=== PATIENT | male | born 1955 | race Caucasian/White ===

== ENCOUNTER 2016-10-30 15:38 | Emergency (ER) | payer SELFPAY ==
[~2016-10-30] VITALS: Ht 177.8 cm; Wt 103.4 kg
--- NOTE | 2016-10-30 16:24 | ED GI/GU/ABDOMINAL COMPLAINT ---
History of Present Illness General Chief Complaint: Skin Rash/ Abcess Stated Complaint: ANAL ABCESS Source: patient, old records Exam Limitations: no limitations Vital Signs & Intake/Output Vital Signs & Intake/Output Vital Signs Date Time Temp Pulse Resp B/P B/P Pulse O2 O2 Flow FiO2 Mean Ox Delivery Rate 10/30 1702 240/138 10/30 1700 234/133 10/30 1549 98.0 67 18 180/120 99 Room Air Allergies Coded Allergies: No Known Allergies (10/30/16) Reconcile Medications Hydrochlorothiazide 50 MG TABLET 1 TAB PO DAILY HTN Triage Note: PT TO ED FOR "ANAL ABSCESS" PT REPORTING HE GETS THEM "APPROX 1 YEAR FOR THE PAST 10 YEARS". Triage Nurses Notes Reviewed? yes Onset: Abrupt Duration: day(s): (1), constant Timing: recent history Quality/Severity: aching, cramping Severity Numbers: 4 Location: rectal Radiation: no radiation Activities at Onset: none No Modifying Factors: none Associated Symptoms: denies HPI: 60-year-old male with no medical history presents to ER for evaluation complaining of a "thrombus" to his rectum for the past 1 day he states he's had history of similar episodes in the past requiring incision and drainage of a blood clot. He denies any fevers chills and a bowel movements morning which is normal. He states the pain is only present with palpation. Denies any discharge from black or bloody stools no abdominal pain nausea or vomiting he is not taken anything for pain on arrival patient noted be hypertensive and he states he is not taking anything for high blood pressure stop taking the 8 years ago presented to not only Made him feel. No chest pain or shortness of breath headache vision changes (MATTY PAYNE) Past History Travel History Traveled to [place] past 21 day No Medical History Any Pertinent Medical History? none Neurological: NONE EENT: NONE Cardiovascular: hypertension Respiratory: NONE Gastrointestinal: NONE Hepatic: NONE Renal: NONE Musculoskeletal: NONE Psychiatric: NONE Endocrine: NONE Blood Disorders: NONE Cancer(s): NONE Surgical History Surgical History: none Psychosocial History What is your primary language Belarusian Tobacco Use: Current Daily Use Daily Tobacco Use Amount/Type: => 5 Cigarettes daily ETOH Use: occasional use Illicit Drug Use: denies illicit drug use Family History Hx Contributory? No (MATTY PAYNE) Review of Systems Review of Systems Constitutional: Reports: see HPI. All Other Systems: Reviewed and Negative Comments Review of systems: See HPI, All other systems negative. Constitutional, no chills no fever, no malaise no weight loss HEENT: No visual changes no sore throat no congestion, no ear pain Cardiovascular: No chest pain , no palpitation , no orthopnea Skin: no rashes, no change in skin Respiratory: No dyspnea no cough no sputum no hemoptysis GI: No nausea no vomiting, no diarrhea, no bloating/constipation : No dysuria No hematuria, no frequency, no discharge Muscle skeletal: No joint pain, no joint swelling, no back pain, no neck pain, Neurologic: No numbness no confusion, no headache Psych: No stress no depression,. Heme/endocrine: No bruising no bleeding Immunology: No lymphadenopathy (MATTY PAYNE) Physical Exam Physical Exam General Appearance: well developed/nourished, alert, awake Gastrointestinal: soft Comments: Well-developed well-nourished patient in no apparent distress. HEENT: Atraumatic, extraocular motion intact Neck: Supple, FROM Back: FROM Cardiovascular: Regular rate and rhythms no murmurs rubs Respiratory: No respiratory distress. Patient speaking in full complete sentences. Breath sounds clear to auscultation bilaterally: NO W/R/R Rectal: Small hemorrhoid external noted to the left side of the rectum there is no surrounding erythema and warmth tender to palpation Extremities: full range of motion Neuro: awake, alert, and oriented to person, place and time. There were no obvious focal neurologic abnormalities. Skin: Warm & dry;No appreciable rash on exposed skin Psych: Mood affect normal, normal memory normal judgment. Core Measures ACS in differential dx? No Severe Sepsis Present: No Septic Shock Present: No (MATTY PAYNE) Progress Differential Diagnosis: hemorrhoids, PERIRECTAL ABSCESS Plan of Care: After the area was anesthetized with lidocaine 1%, small incision was made, discussed the patient that there was no blood clot present there is no signs of infection no discharge elicited, discussed the plan of care he states that normally they just placed 4 x 4 dressings and it will get better with time. Discussed with patient his elevated blood pressure he states he does check it at home and it is elevated secondary to pain. He was on medication 8 years ago however stopped taking because he did not like to wait made him feel. I discussed with him the harms and risks of elevated blood pressure he is not on a stay for adjustment in medication to see if it responds states it is only elevated because of the procedure he just underwent Initial ED EKG: none (MATTY PAYNE) Departure Departure Time of Disposition: 1651 Disposition: HOME OR SELF CARE Condition: Stable Clinical Impression Primary Impression: Hemorrhoid Secondary Impressions: HTN (hypertension) Referrals: PATIENT HAS NO PRIMARY CARE DR (PCP/Family) Additional Instructions: SITZ BATHS DISCUSSED. RETURN TO THE ER WITH ANY CONCERNS. USE THE PRESCRIBED HYDROCORTISONE CREAM DISCUSSED.. hctz as directed for your elevated blood pressure. continue to monitor at home with yourmonitor. FOLLOW UP WITH YOUR PMD WHEN YOU RETURN DISCUSSED FOR REPEAT EVALUATION WELL EVALUATION OF YOUR ELEVATED BLOOD PRESSURE Departure Forms: Customer Survey General Discharge Information Prescriptions: Current Visit Scripts Hydrochlorothiazide 1 TAB PO DAILY #30 TAB (MATTY PAYNE) PA/SWEATBAND FLANGER Co-Sign Statement Statement: ED Attending supervision documentation- [] I saw and evaluated the patient. I have also reviewed all the pertinent lab results and diagnostic results. I agree with the findings and the plan of care as documented in the PA's/SWEATBAND FLANGER's documentation. [X] I have reviewed the ED Record and agree with the PA's/SWEATBAND FLANGER's documentation. [] Additions or exceptions (if any) to the PAs/SWEATBAND FLANGER's note and plan are summarized below: [] (NEGRA SKY DO
[2016-10-30 17:02] VITALS: BP 240/138
[2016-10-30] MEDS ORDERED: HYDROCHLOROTHIA50 M1 PO (17:08)
== END 2016-10-30 17:19 ==
LOC: ERH 15:38
DX: K64.9 Unspecified hemorrhoids (principal); I10 Essential (primary) hypertension

== ENCOUNTER 2017-12-31 21:10 | Inpatient (IN) | payer OTHER ==
[~2017-12-31] VITALS: Ht 177.8 cm; Wt 125.7 kg
[~2017-12-31 21:10] MED LIST: HYDROCHLOROTHIA50 M1 PO
[2017-12-31 21:53] LABS: ABSOLUTE BASOPHIL COUNT 0 /CUMM (0.0-0.2); ABSOLUTE EOSINOPHIL COUNT 0.1 /CUMM (0.0-0.7); ABSOLUTE LYMPH COUNT 2.3 /CUMM (1.2-3.4); ABSOLUTE MONOCYTE COUNT 0.6 /CUMM (0.10-0.60); BASOPHIL % 0.3 % (0.0-2.0); EOSINOPHIL % 1.2 % (0-5); HEMATOCRIT 49.2 % (42-52); MEAN CORPUSCULAR HGB 33.3 PG (27.0-31.0); MEAN CORPUSCULAR HGB CONC 34.6 G/DL (33.0-37.0); MEAN CORPUSCULAR VOLUME 96.1 FL (80.0-94.0); MEAN PLATELET VOLUME 8.7 FL (7.4-10.4); PLATELET COUNT 220 /CUMM (130-400); RBC DISTRIBUTION WIDTH 13.4 % (11.5-14.5); RED BLOOD CELL CT 5.12 /CUMM (4.70-6.10); WHITE BLOOD CELL COUNT 9.1 /CUMM (4.8-10.8)
[2017-12-31 21:55] LABS: PT 11.5 SEC (9.4-12.5); PTT 29 SEC (25-37)
--- NOTE | 2017-12-31 22:21 | ED CARDIAC/CP/PALPITATIONS ---
History of Present Illness General Chief Complaint: General Adult Stated Complaint: "IM HAVING HARD TIME BREATHING BUT IT MY HEART" Source: patient, family Exam Limitations: no limitations Vital Signs & Intake/Output Vital Signs & Intake/Output Vital Signs Date Time Temp Pulse Resp B/P B/P Pulse O2 O2 Flow FiO2 Mean Ox Delivery Rate 01/01 0034 98.3 78 17 134/75 97 Nasal 1.5L Cannula 12/31 2250 98.7 89 16 121/63 94 Nasal 2.0L Cannula 12/31 2241 127 16 171/106 12/31 2223 134 18 142/72 12/31 2209 94 Room Air 12/31 2151 133 16 187/117 95 Room Air 12/31 2118 143/92 12/31 211 96.6 111 17 98 Room Air ED Intake and Output 01/01 0000 12/31 1200 Intake Total Output Total 300 Balance -300 Output, Urine 300 Patient 245 lb Weight Allergies Coded Allergies: No Known Allergies (10/30/16) Reconcile Medications Hydrochlorothiazide 50 MG TABLET 1 TAB PO DAILY HTN Triage Note: PT TO ED WITH C/O SOB WHILE EATING DINNER. STATES FEELS LIKE PULSE IS "IRREGULAR." TAKES MEDS FOR HTN. DENIES CP. PULSE NOTED IN LOW 100S TO 120S IN TRIAGE. Triage Nurses Notes Reviewed? yes Onset: Gradual Duration: hour(s): Quality/Severity: moderate HPI: 62yo male with hx of HTN presents to emergency department complaining of abrupt onset of dyspnea occurring 2 hours prior to arrival. Patient states that he was resting after dinner when his symptoms began. He states he had a mild substernal chest pressure at this time. Patient also became diaphoretic and felt lightheaded. Patient presented here to the emergency department and states currently his symptoms feel improved. He states that this happened once before about 4 months ago however he was not seen at that time. He states he has seen a care worker recently just for rountine cardiac testing. The patient denies hemoptysis, abdominal pain, vomiting, fevers, chills, leg swelling. (Nika CEDEÑO,Darcy Ramirez) Past History Travel History Traveled to [place] past 21 day No Medical History Any Pertinent Medical History? see below for history Neurological: NONE EENT: NONE Cardiovascular: hypertension Respiratory: NONE Gastrointestinal: NONE Hepatic: NONE Renal: NONE Musculoskeletal: NONE Psychiatric: NONE Endocrine: NONE Blood Disorders: NONE Cancer(s): NONE Surgical History Surgical History: none Psychosocial History What is your primary language Spanish Tobacco Use: Current Daily Use Daily Tobacco Use Amount/Type: => 5 Cigarettes daily Family History Hx Contributory? No (Darcy Lopez) Review of Systems Review of Systems Constitutional: Reports: see HPI. EENTM: Reports: no symptoms. Respiratory: Reports: see HPI. Cardiovascular: Reports: see HPI. GI: Reports: no symptoms. Genitourinary: Reports: no symptoms. Musculoskeletal: Reports: no symptoms. Skin: Reports: no symptoms. Neurological/Psychological: Reports: no symptoms. Hematologic/Endocrine: Reports: no symptoms. Immunologic/Allergic: Reports: no symptoms. All Other Systems: Reviewed and Negative (Darcy Lopez) Physical Exam Physical Exam General Appearance: well developed/nourished, no apparent distress, alert, awake Head: atraumatic, normal appearance Eyes: Bilateral: normal appearance. Ears, Nose, Throat: hearing grossly normal Neck: normal inspection, supple, full range of motion Respiratory: normal breath sounds, no respiratory distress, lungs clear Cardiovascular: tachycardia, irregularly irregular Peripheral Pulses: 2+ radial (R), 2+ radial (L) Gastrointestinal: normal bowel sounds, soft, non-tender, no organomegaly Back: normal inspection, normal range of motion Extremities: normal inspection Neurologic/Psych: awake, alert, oriented x 3 Skin: intact, normal color, warm/dry Core Measures ACS in differential dx? Yes CVA/TIA Diagnosis No Sepsis Present: No Sepsis Focused Exam Completed? No (Darcy Lopez) Progress Differential Diagnosis: AMI, atrial fibrillation, CHF/pulm edema, costochondritis, hyperkalemia, hyperthyroid, myocarditis, pericarditis, pneumonia, PSVT, pulmonary embolism, unstable angina, V-fib/V-Tach Plan of Care: Orders Procedure Date/time Status Regular Diet 01/01 B Active Pathway - chart 01/02 12 Active Patient Data 01/02 12 Active Code Status 01/02 12 Active Pathway - chart 01/01 UNK Active House Staff 01/01 UNK Active VTE Mechanical Prophylaxis 01/01 UNK Active Vital Signs 01/01 UNK Active Telemetry/Cloth Classer 01/01 UNK Active Intake & Output 01/01 UNK Active Activity/Ambulation 01/01 UNK Active OXYGEN SETUP (GEN) 01/01 2332 Active Saline Lock 01/01 2332 Active Admit to inpatient 01/01 2332 Active Vital Signs 01/01 2332 Active Activity/Ambulation 01/01 2332 Active Code Status 01/01 2332 Complete Patient Data 12/31 232 Active Add-on Test (ER Only) 12/31 225 Active Add-on Test (ER Only) 12/31 222 Active THYROID STIMULATING HORMONE 12/31 2212 Complete MAGNESIUM 12/31 2212 Complete FREE T4 12/31 2212 Complete B-TYPE NATRIURETIC PEP (BNP) 12/31 2212 Complete Intake & Output 01/01 2208 Active PARTIAL THROMBOPLASTIN TIME 12/31 2136 Complete PROTHROMBIN TIME 12/31 2136 Complete D-DIMER 01/01 2132 Complete TROPONIN LEVEL 12/31 2126 Complete COMPREHENSIVE METABOLIC PANEL 12/31 2126 Complete CBC WITHOUT DIFFERENTIAL 12/31 2126 Complete EKG 12/31 2117 Active Current Medications Sig/Vitaly Start time Last Medication Dose Stop Time Status Admin Diltiazem HCl 125 MG Q24H 12/31 2299 AC 12/31 (Cardizem DRIP) 2320 Sodium Chloride 100 ML (Normal Saline 0.9%) Laboratory Tests 12/31/172212: Anion Gap 16, Estimated GFR > 60, BUN/Creatinine Ratio 23.6, Glucose 160 H, Calcium 10.1, Magnesium 2.2, Total Bilirubin 0.3, AST 63 H, ALT 120 H, Alkaline Phosphatase 64, Troponin I < 0.01, Kql-J-Pqtpnpkqolw Pept 87.9, Total Protein 7.4, Albumin 4.8, Globulin 2.6, Albumin/Globulin Ratio 1.8, TSH 2.950, Free T4 1.21 12/31/172136: Rgy-J-Yitlaspscwi Pept Cancelled 12/31/172131: PT 11.5, INR 1.05, APTT 29, D-Dimer High Sensitivty < 200, CBC w Diff NO MAN DIFF REQ, RBC 5.12, MCV 96.1 H, MCH 33.3 H, MCHC 34.6, RDW 13.4, MPV 8.7, Gran % 66.0, Lymphocytes % 25.7, Monocytes % 6.8, Eosinophils % 1.2, Basophils % 0.3, Absolute Granulocytes 6.0, Absolute Lymphocytes 2.3, Absolute Monocytes 0.6, Absolute Eosinophils 0.1, Absolute Basophils 0 The patient arrives with heart rate in the 140s. He was medicated with 1 dose IV Cardizem 10 mg. Following this initial dose heart rate between 120s to 130s. Second dose of 20 mg administered and heart rate more controlled, between 85 and 100. Awaiting cardiology page. Patient's oxygen level dropped to 92% on room air, supplemental oxygen via nasal cannula applied. Spoke with Dr. Shelton regarding this patient's rapid atrial fibrillation. He agrees with our plan for hospital admission, he recommends IV Cardizem drip, WILL hold heparinization at this time. Dr. Lantigua spoke with hospitalist regarding this patient's telemetry admission. Diagnostic Imaging: Viewed by Me: Radiology Read. Discussed w/RAD: Radiology Read. CXR Impression: PATIENT: NENO GARCIA PRESENT AGE: 62 PATIENT ACCOUNT NO: [id number] : 57 LOCATION: [facility] ORDERING PHYSICIAN: Darcy CEDEÑO SERVICE DATE: 12/31/17 EXAM TYPE: RAD - XRY-PORTABLE CHEST XRAY EXAMINATION: XR PORTABLE CHEST CLINICAL INFORMATION: Dyspnea COMPARISON: 10/02/2017 TECHNIQUE: Portable frontal view of the chest was obtained. FINDINGS: No significant abnormality is noted involving the heart, lungs, mediastinum, bony thorax or soft tissues. IMPRESSION: Unremarkable examination. DICTATED BY: Jensen Kent MD DATE/TIME DICTATED:12/31/172247 BRANCH ADMINISTRATOR:PORSHA DATE/TIME TRANSCRIBED:12/31/172247 CONFIDENTIAL, DO NOT COPY WITHOUT APPROPRIATE AUTHORIZATION. <Electronically signed in Other Vendor System> SIGNED BY: Jensen Kent MD 12/31/17 7575 Initial ED EKG: RAPID A FIB RATE 144 (Nika CEDEÑO,Darcy Ramirez) Departure Departure Disposition: STILL A PATIENT Condition: Stable Clinical Impression Primary Impression: Rapid atrial fibrillation Referrals: Lei Enciso MD (PCP/Family) Departure Forms: Customer Survey General Discharge Information Admission Note Spoke With: Shay Moseley MD Documentation of Exam: Documentation of any treatments & extenuating circumstances including Concerns Regarding Discharge (functional status, medication knowledge or non-compliance, living conditions, etc.) that warrant an admission rather than observation: [ Rapid atrial fibrillation requiring IV Cardizem ip, cardiology consult, telemetry monitoring, supplemental oxygen, premature discharge medically unsafe] (Darcy Lopez) PA/SCREEDMAN Co-Sign Statement Statement: ED Attending supervision documentation- x I saw and evaluated the patient. I have also reviewed all the pertinent lab results and diagnostic results. I agree with the findings and the plan of care as documented in the PA's/SCREEDMAN's documentation. SOB, palpitations: new onset rapid afib [] I have reviewed the ED Record and agree with the PA's/SCREEDMAN's documentation. [] Additions or exceptions (if any) to the PAs/SCREEDMAN's note and plan are summarized below: [] (Grzegorz CUEVAS,Aiden) Critical Care Note Critical Care Note Critical Care Time: 30-74 min (Darcy Lopez)
--- NOTE | 2017-12-31 22:53 | RADIOLOGY REPORT ---
EXAMINATION: XR PORTABLE CHEST CLINICAL INFORMATION: Dyspnea COMPARISON: 10/02/2017 TECHNIQUE: Portable frontal view of the chest was obtained. FINDINGS: No significant abnormality is noted involving the heart, lungs, mediastinum, bony thorax or soft tissues. IMPRESSION: Unremarkable examination.
--- NOTE | 2018-01-01 00:02 | History & Physical ---
GeraldinejohnathanJose F 01/01/18 0001: General Information and HPI MD Statement: I have seen and personally examined NENO GARCIA and documented this H&P. Source of Information: patient Exam Limitations: no limitations History of Present Illness: Patient is a 62 yo M with PMH of HTN who presented to [place] ER due to difficulty breathing. He has had a fairly benign medical history until 9 months ago when his primary care physician diagnosed him with hypertension. He was prescribed what patient seems to recollect as "a water pill" and possibly an PHOEBE ihibitor but he is unsure. He used the medications for a few weeks until he noticed bilateral edema in his legs and developed a harsh dry cough. The second medication was changed to Losartan. The water pill was kept in the reigmen. He was given a referral to Dr. Glover (ground crewman mission support) and follows with him. Patient stopped taking his medication because it seems he never returned for a refill. He has an extensive smoking history of at least 1/2 a ppd for 25 years. According to the patient he was at home resting right after having his evening meal when he became diaphoretic, hot, and started experiencing palpitations. He felt lightheaded and found it difficult to breath while also experiencing some chest discomfort, which was the reason he decided to come to the ER. He endorses that he only had one similar event to this in the past about 4-6 months ago however he never saw any health client care coordinator at the time. Upon admission to the ED his HR is found to be in the 140s. After initial EKG, patient is found to be in AFib with RVR. He was given two doses IV cardizem, first 10mg then 20mg and was more rate controlled down to the 100s. His O2 saturation was found to be 92% on room air. He denies changes in vision, nausea, vomiting, chills at this time. Allergies/Medications Allergies: Coded Allergies: No Known Allergies (10/30/16) Home Med list Aspirin (Aspirin*) 325 MG TABLET 1 TAB PO DAILY afib Hydrochlorothiazide 50 MG TABLET 1 TAB PO DAILY HTN Losartan Potassium 25 MG TABLET 1.5 TAB PO DAILY htn (Reported) Metoprolol Succ XL (Toprol XL) 25 MG TAB 1 TAB PO DAILY afib/htn . Past History Travel History Traveled to [place] past 21 day No Medical History Neurological: NONE EENT: NONE Cardiovascular: hypertension Respiratory: NONE Gastrointestinal: NONE Hepatic: NONE Renal: NONE Musculoskeletal: NONE Psychiatric: NONE Endocrine: NONE Blood Disorders: NONE Cancer(s): NONE Surgical History Surgical History: none Review of Systems Review of Systems Constitutional: Reports: see HPI. Exam & Diagnostic Data Last 24 Hrs of Vital Signs/I&O Vital Signs Date Time Temp Pulse Resp B/P B/P Pulse O2 O2 Flow FiO2 Mean Ox Delivery Rate 01/01 0451 98.2 66 22 128/76 93 Room Air 01/01 0143 77 144/84 01/01 0119 98.3 84 20 144/84 94 Room Air 01/01 0034 98.3 78 17 134/75 97 Nasal 1.5L Cannula 12/31 2250 98.7 89 16 121/63 94 Nasal 2.0L Cannula 12/31 2241 127 16 171/106 12/31 2223 134 18 142/72 12/31 2209 94 Room Air 12/31 2151 133 16 187/117 95 Room Air 12/31 2118 143/92 12/31 2116 96.6 111 17 98 Room Air Intake & Output 01/01 0800 01/01 0000 12/31 1600 Intake Total Output Total 575 300 Balance -575 -300 Output, Urine 575 300 Patient 277 lb 245 lb Weight Weight Bed scale Measurement Method Physical Exam General Appearance Alert, Oriented X3, Cooperative, No Acute Distress Skin Temp/Moisture Exam: Warm/Dry HEENT Atraumatic, EOMI Neck Supple, No JVD Cardiovascular Regular Rate, Normal S1, Normal S2 Lungs Clear to Auscultation, Normal Air Movement Abdomen Normal Bowel Sounds, Soft, No Tenderness Extremities No Cyanosis, Normal Pulses, No Tenderness/Swelling Last 24 Hrs of Labs/Logan: Laboratory Tests 01/01/18 0415: Anion Gap 9, Estimated GFR > 60, BUN/Creatinine Ratio 24.4, Troponin I 0.12 *H, CBC w Diff NO MAN DIFF REQ, RBC 4.86, MCV 95.7 H, MCH 33.0 H, MCHC 34.5, RDW 13.8, MPV 8.4, Gran % 60.3, Lymphocytes % 31.5, Monocytes % 6.8, Eosinophils % 1.0, Basophils % 0.4, Absolute Granulocytes 5.1, Absolute Lymphocytes 2.7, Absolute Monocytes 0.6, Absolute Eosinophils 0.1, Absolute Basophils 0 12/31/172212: Anion Gap 16, Estimated GFR > 60, BUN/Creatinine Ratio 23.6, Glucose 160 H, Calcium 10.1, Magnesium 2.2, Total Bilirubin 0.3, AST 63 H, ALT 120 H, Alkaline Phosphatase 64, Troponin I < 0.01, Pty-V-Fryljhpgmsh Pept 87.9, Total Protein 7.4, Albumin 4.8, Globulin 2.6, Albumin/Globulin Ratio 1.8, TSH 2.950, Free T4 1.21 12/31/172136: Kfc-Z-Xftpbizopfv Pept Cancelled 12/31/172131: PT 11.5, INR 1.05, APTT 29, D-Dimer High Sensitivty < 200, CBC w Diff NO MAN DIFF REQ, RBC 5.12, MCV 96.1 H, MCH 33.3 H, MCHC 34.6, RDW 13.4, MPV 8.7, Gran % 66.0, Lymphocytes % 25.7, Monocytes % 6.8, Eosinophils % 1.2, Basophils % 0.3, Absolute Granulocytes 6.0, Absolute Lymphocytes 2.3, Absolute Monocytes 0.6, Absolute Eosinophils 0.1, Absolute Basophils 0 Assessment/Plan Assessment: 62 yo M with PMH of HTN who presented to [place] ER due to difficulty breathing. In ER found to be afib with RVR. Started Cardizem Drip. Spontaneously Converted to NSR after rate control. 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 Rapid atrial fibrillation Core Measures/Misc (01/12) Acute Coronary Syndrome ACS Diagnosis: No Congestive Heart Failure Congestive Heart Failure Diagnosis No Cerebrovascular Accident CVA/TIA Diagnosis: No VTE (View Protocol) VTE Risk Factors Age>40 No Mechanical VTE Prophylaxis d/t N/A MechProphylax Ordered No VTE Pharm Prophylaxis d/t NA PharmProphylax ordered Sepsis (View protocol) Sepsis Present: No If YES complete Sepsis Event Note If YES complete Sepsis Event Note Catrachito Yeung 01/01/18 0009: Core Measures/Misc (01/12) Sepsis (View protocol) If YES complete Sepsis Event Note If YES complete Sepsis Event Note Resident Review Statement Resident Statement: examined this patient, discussed with advisory intern, agreed with advisory intern Other Findings: This is a 62-year-old male, current active smoker, past medical history of hypertension came in with chief complaint of having hard time breathing and endorses that this is all due to his heart. Apparently 8-9 months ago, he was following up with his PCP when he was found to have high blood pressure which was not controlled by diet this is when he was initially started on a diuretic namely hydrochlorothiazide and then another medication for high blood pressure however he experienced symptoms of cough and lower extremity edema and therefore ultimately the medication was changed to losartan. After this he was referred to cardiology and he had a recent echocardiogram 2 months prior to today's presentation which according to him was normal. He seem to have seen Dr. Glover as outpatient. Today prior to presentation he was resting after having his dinner this is when he suddenly became sweaty, could not catch any breath, felt lightheaded and dizzy, became diaphoretic and experienced some mild substernal chest pressure, this is why he presented to [place] emergency department. He endorses a history of similar episode 4 months ago however he did not seek hospital care at that time. He states that he has seen a ground crewman mission support(?Dr glover) recently and had routine cardiac testing which was WNL. His vitals on presentation are temperature of 98.7, pulse of 133, respiration of 16, blood pressure of 187 117, he was saturating 95% on room air. lab armando he had a white count of 9.1, H/H of 17.0/49.2, platelet of 220. Sodium of 137, potassium of 3.1, BUN/creatinine 26/1.1, glucose of 160. AST mildly elevated at 63 and ALT at 120. Troponin I was negative less than 0.01. TSH and free T4 was normal. CXR : no acute abnormality We will admit the patient to cardiac telemetry floor for continuous cardiac monitoring. Problem list along with assessment and plan. #1 atrial fibrillation with rapid ventricular rate. * Continue to monitor patient on cardiac telemetry floor, continue to monitor intake and output, continue to monitor vitals every shift * patient was started on IV Cardizem, currently heart rate well controlled, will discontinue Cardizem and start p.o. metoprolol 12.5 twice daily. * His chads vascular score is equivalent to 1, which falls an intermediate risk of thromboembolic event. He denies any history of diabetes, stroke or TIA, however he does have a history of hypertension. * We will continue rate control with metoprolol for now * cardiology consult with Dr. Glover in a.m. As per him he thinks that he saw Dr. Glover is his ground crewman mission support however it is not completely sure. * He had a recent echocardiogram as outpatient, please obtain records for recent echocardiogram. * Continue to trend EKG and troponin serial EKG and troponin. #2 history of hypertension. * Continue home medication of hydrochlorothiazide and losartan. * Continue to monitor blood pressure. #3 current active smoker. * We will offer nicotine patch. * Smoking cessation. Full code. Heart healthy diet. DVT prophylaxis with Lovenox. Shay Moseley 01/01/18 0129: Core Measures/Misc (01/12) Sepsis (View protocol) If YES complete Sepsis Event Note If YES complete Sepsis Event Note Attending MD Review Statement Attending Statement Attending MD Statement: examined this patient, discuss w/resident/PA/SENIOR NET APPLICATION DEVELOPER, agreed w/resident/PA/SENIOR NET APPLICATION DEVELOPER Attending Assessment/Plan: Addendum by . Patient was seen and examined at bedside today ( 01/01/18) at 1:30Am.. Reviewed the history physical done by the resident. Reviewed the past medical family, family, social history. ROS: 10 point system reviewed and negative except as described above. Exam: Cardiac exam: Regular rhythm normal rate, no murmurs. See the full examination per resident note. Labs, EKG, daily, imaging are reviewed. a/P; #atrial fibrillation with rapid rate: Currently patient is sinus rhythm, converted spontaneously. Patient got Cardizem drip. Will stop the Cardizem drip, start metoprolol 12.5 mg twice daily. CHAdsVasc score is 1, hold off on blood thinner. Patient has echocardiogram 2 months ago at his cardiology office. Get the report. consult cardiology in the morning. Monitoring on tele. Keep n.p.o. until seen by cardiology. #Hypertension: Patient is on hydrochlorothiazide, losartan at home- can resume the medications. #Smoking: smoking cessation is counseled . Reviewed with the resident. Agree with the rest of the plan as per resident's note. Dr.Ravinder Kirti MD. Hospitalist. Pager: [phone], cell: [phone].
[2018-01-01 01:19] VITALS: BP 144/84
[2018-01-01] MEDS ORDERED: LOSARTAN POTASS25 M1 PO (01:35)
[2018-01-01 04:37] LABS: ABSOLUTE BASOPHIL COUNT 0 /CUMM (0.0-0.2); ABSOLUTE EOSINOPHIL COUNT 0.1 /CUMM (0.0-0.7); ABSOLUTE GRANULOCYTE CT 5.1 /CUMM (1.4-6.5); ABSOLUTE LYMPH COUNT 2.7 /CUMM (1.2-3.4); ABSOLUTE MONOCYTE COUNT 0.6 /CUMM (0.10-0.60); BASOPHIL % 0.4 % (0.0-2.0); GRANULOCYTE % 60.3 % (42.2-75.2); HEMATOCRIT 46.5 % (42-52); MEAN CORPUSCULAR HGB CONC 34.5 G/DL (33.0-37.0); MEAN CORPUSCULAR VOLUME 95.7 FL (80.0-94.0); MEAN PLATELET VOLUME 8.4 FL (7.4-10.4); PLATELET COUNT 211 /CUMM (130-400); RBC DISTRIBUTION WIDTH 13.8 % (11.5-14.5); RED BLOOD CELL CT 4.86 /CUMM (4.70-6.10); WHITE BLOOD CELL COUNT 8.5 /CUMM (4.8-10.8)
[2018-01-01 04:51] VITALS: BP 128/76
--- NOTE | 2018-01-01 07:14 | PN- Housestaff ---
Holly CUEVAS,Alo 01/01/18712: Subjective Follow-up For: afib with rvr hypokalemia Tele-Events Since Last Visit: converted to sinus rhythm Subjective: patient has no complaints, no chest pain, dyspnea, palpitations, diaphoresis anxious to be discharged Review of Systems Constitutional: Reports: see HPI. Objective Last 24 Hrs of Vital Signs/I&O Vital Signs Date Time Temp Pulse Resp B/P B/P Pulse O2 O2 Flow FiO2 Mean Ox Delivery Rate 01/01 0807 66 136/78 01/01 0806 66 136/78 01/01 0800 Room Air 01/01 0451 98.2 66 22 128/76 93 Room Air 01/01 0143 77 144/84 01/01 0119 98.3 84 20 144/84 94 Room Air 01/01 0034 98.3 78 17 134/75 97 Nasal 1.5L Cannula 12/31 2250 98.7 89 16 121/63 94 Nasal 2.0L Cannula 12/31 2241 127 16 171/106 12/31 2223 134 18 142/72 12/31 2209 94 Room Air 12/31 2151 133 16 187/117 95 Room Air 12/31 2118 143/92 12/31 2116 96.6 111 17 98 Room Air Intake & Output 01/01 1600 01/01 0800 01/01 0000 Intake Total 155 Output Total 575 300 Balance -420 -300 Intake, IV 5 Intake, Oral 150 Number 0 Bowel Movements Output, Urine 575 300 Patient 125.73 kg 111.13 kg Weight Weight Bed scale Measurement Method Physical Exam General Appearance: Alert, Oriented X3, Cooperative, No Acute Distress, obese Cardiovascular: Regular Rate, Normal S1, Normal S2, No Murmurs Lungs: Clear to Auscultation, Normal Air Movement Abdomen: Normal Bowel Sounds, Soft, No Tenderness, No Masses Extremities: No Clubbing, No Cyanosis, No Edema, Normal Pulses Current Medications: Current Medications Sig/Vitaly Start time Last Medication Dose Route Stop Time Status Admin Acetaminophen 650 MG Q6P PRN 01/01 014 AC PO Acetaminophen 1,000 MG Q6P PRN 01/01 014 AC IV Diltiazem HCl 0 .STK-MED ONE 12/313 DC IV Diltiazem HCl 0 .STK-MED ONE 12/31 2306 DC IV Diltiazem HCl 125 MG Q24H 12/31 2299 NH 12/31 Sodium Chloride 100 ML IV 232 Diltiazem HCl 20 MG ONCE ONE 12/31 2244 DC 12/31 IV 12/31 Diltiazem HCl 0 .STK-MED ONE 01/01 2240 DC .ROUTE Diltiazem HCl 0 .STK-MED ONE 12/31 2221 DC .ROUTE Diltiazem HCl 10 MG ONCE ONE 12/31 2214 DC 12/31 IV 12/31 Hydrochlorothiazide 50 MG DAILY 01/01 900 AC 01/01 PO 08 Losartan Potassium 37.5 MG DAILY 01/01 900 AC 01/01 PO 0807 Metoprolol Tartrate 12.5 MG BID 01/01 014 AC 01/01 PO 08 Nicotine 14 MG DAILY 01/01 900 AC TOP Oxycodone/ 1 TAB Q6P PRN 01/01 014 AC Acetaminophen PO Potassium Chloride 20 MEQ ONCE ONE 01/01 1200 UNVr PO 01/01 1201 Potassium Chloride 0 .STK-MED ONE 12/31 2326 DC PO Potassium Chloride 40 MEQ ONCE ONE 12/31 231 DC 12/31 PO 01/01 2316 232 Last 24 Hrs of Lab/Logan Results Last 24 Hrs of Labs/Mics: Laboratory Tests 01/01/18 1030: Troponin I 0.08 01/01/18 0415: Anion Gap 9, Estimated GFR > 60, BUN/Creatinine Ratio 24.4, Troponin I 0.12 *H, CBC w Diff NO MAN DIFF REQ, RBC 4.86, MCV 95.7 H, MCH 33.0 H, MCHC 34.5, RDW 13.8, MPV 8.4, Gran % 60.3, Lymphocytes % 31.5, Monocytes % 6.8, Eosinophils % 1.0, Basophils % 0.4, Absolute Granulocytes 5.1, Absolute Lymphocytes 2.7, Absolute Monocytes 0.6, Absolute Eosinophils 0.1, Absolute Basophils 0 12/31/172212: Anion Gap 16, Estimated GFR > 60, BUN/Creatinine Ratio 23.6, Glucose 160 H, Calcium 10.1, Magnesium 2.2, Total Bilirubin 0.3, AST 63 H, ALT 120 H, Alkaline Phosphatase 64, Troponin I < 0.01, Xyy-X-Jtkfonumdtl Pept 87.9, Total Protein 7.4, Albumin 4.8, Globulin 2.6, Albumin/Globulin Ratio 1.8, TSH 2.950, Free T4 1.21 12/31/172136: Jkj-W-Srmlkqajdad Pept Cancelled 12/31/172131: PT 11.5, INR 1.05, APTT 29, D-Dimer High Sensitivty < 200, CBC w Diff NO MAN DIFF REQ, RBC 5.12, MCV 96.1 H, MCH 33.3 H, MCHC 34.6, RDW 13.4, MPV 8.7, Gran % 66.0, Lymphocytes % 25.7, Monocytes % 6.8, Eosinophils % 1.2, Basophils % 0.3, Absolute Granulocytes 6.0, Absolute Lymphocytes 2.3, Absolute Monocytes 0.6, Absolute Eosinophils 0.1, Absolute Basophils 0 Assessment/Plan Assessment: 62 year old male obese HTN smoker presented with complaints of dyspnea and was found to be in atrial fibrillation with rapid ventricular response, now converted to normal sinus rhythm after receiving diltiazem. Atrial fibrillation with rapid ventricular response Converted to sinus rhythm after IV diltiazem Metoprolol started 12.5mg po bid TSH was normal CHADsvasc score of 1, start aspirin Cardiology consulted, follow up recommendations Echocardiogram 09/2017 Normal left ventricular size, wall thickness and systolic function with no obvious regional wall motion abnormalities. The ejection fraction is visually estimated at 60 %. Grade 1 diastolic dysfunction. There is trace tricuspid regurgitation. Pulmonary artery systolic pressure is normal. Hypokalemia: 3.1 on presentation Repleted with oral potassium Elevated troponins: Demand ischemia in the setting of tachyarrhythmia but possible Type II NSTEMI, with subsequent decrease after conversion to normal sinus rhythm Patient has risk factors for CAD with obesity, smoking, and HTN Consider outpatient stress test HTN: Continue losartan and HCTZ, in addition to metoprolol 12.5mg po bid Smoking: Continue nicotine patch Mild transaminitis: AST 63, ALT 120 Repeat LFTs as an outpatient Heart healthy diet DVT ppx-lovenox sc Full code Problem List: 1. Rapid atrial fibrillation 2. HTN (hypertension) 3. Obesity 4. Hypokalemia Pain Ratin Pain Location: n/a Pain Goal: Pain 4 or less Pain Plan: prn Tomorrow's Labs & Rationales: none Margi Soto MD 01/01/18 1038: Attending MD Review Statement Attending Statement Attending MD Statement: examined this patient, discuss w/resident/PA/MEDICAL OFFICE RECEPTIONIST ASSISTANT, agreed w/resident/PA/MEDICAL OFFICE RECEPTIONIST ASSISTANT, reviewed EMR data (avail) Attending Assessment/Plan: 62M PMH HTN presenting with palpitations in the setting of rapid atrial fibrillation. Had an episode of afib 6 months ago that self-resolved. In the ER he was given IV Cardizem and he converted to NSR, where he remains. He has no complaints at this time, and denies chest pain, palpitations, SOB, lightheadedness, diaphoresis, n/v, abdominal pain. He has never had a stress test or cardiac cath. His troponin is slightly elevated at 0.12. 1. New onset atrial fibrillation 2. Type 2 myocardial infarction Plan - Continue on telemetry - Continue Metoprolol - CHADS-VASC = 1, continue ASA - Cardiology consult - Trend enzymes to peak - Continue home medications - DVT PPx
[2018-01-01 08:07] VITALS: BP 136/78
[2018-01-01] MEDS ORDERED: TOPROL XL25 M1 PO ×2 (12:23→12:25)
[2018-01-01] MEDS ORDERED: ASPIRIN325 M2 PO (12:23)
--- NOTE | 2018-01-01 12:27 | Patient Discharge Instructions ---
Discharge Instructions General Discharge Information You were seen/treated for: afib elevated troponins Special Instructions: Follow up with your primary care physician and z os mainframe systems programmer, Dr. Shelton. Diet Recommended Diet: Heart Healthy Acute Coronary Syndrome Inclusion Criteria At DC or during hospital stay patient has or had the following: ACS DIAGNOSIS No Discharge Core Measures Meds if any: Prescribed or Continued at Discharge Meds if any: NOT Prescribed or Continued at Discharge Congestive Heart Failure Inclusion Criteria At DC or during hospital stay patient has or had the following: CHF DIAGNOSIS No Discharge Core Measures Meds if any: Prescribed or Continued at Discharge Meds if any: NOT Prescribed or Continued at Discharge Cerebrovascular accident Inclusion Criteria At DC or during hospital stay patient has or had the following: CVA/TIA Diagnosis No Discharge Core Measures Meds if any: Prescribed or Continued at Discharge Meds if any: NOT Prescribed or Continued at Discharge Venous thromboembolism Inclusion Criteria VTE Diagnosis No VTE Type NONE VTE Confirmed by (Test) NONE Discharge Core Measures - Per Current guidelines, there needs to be overlap - treatment for the first 5 days of Warfarin therapy. - If discharged on Warfarin prior to 5 days of - overlap therapy, the patient will need to be - assessed for post discharge needs including - *Post discharge parental anticoagulation - *Warfarin and/or parental anticoagulation education - *Follow up date to check INR post discharge At least 5 days overlap therapy as Inpatient No Meds if any: Prescribed or Continued at Discharge Note: Overlap Therapy is Warfarin and Anticoagulant Meds if any: NOT Prescribed or Continued at Discharge
--- NOTE | 2018-01-01 12:27 | Discharge Summary ---
Visit Information Visit Dates Admission Date: 12/31/17 Discharge Date: 01/01/18 Hospital Course Course Attending Physician: Shay Moseley MD Primary Care Physician: Lei Enciso MD Hospital Course: 62 year old male smoker with obesity and HTN presented with acute onset dyspnea, diaphoresis, palpitions, and chest heaviness found to be in atrial fibrillation with rapid ventricular response. He was admitted to telemetry and spontaneously converted to normal sinus rhythm after receiving intravenous diltiazem. Cardiology was consulted. He was started on aspirin, given his CHADSvasc score of 1. His thyroid function was normal. Other labs were notable for mild transaminitis, AST 63 ALT 120, that can be repeated as an outpatient; hypokalemia that was repleted orally; and minimally elevated troponin to 0.12, that then trended down after conversion to sinus rhythm. This was likely demand ischemia in the setting of tachyarrhythmia. He will need ambulatory Holter monitoring after discharge. He has risk factors for CAD with obesity, smoking, and HTN and may need outpatient stress testing for CAD risk stratification. He was started on metoprolol 12.5mg po bid with heart rates in the 60s-70s and blood pressure 130s systolic. He had a recent echocardiogram in 09/2017 that showed normal left ventricular size, wall thickness and systolic function, grade 1 diastolic dysfunction, and trace TR, so this was not repeated during admission. He was discharged on aspirin and metoprolol XL 25mg po daily and instructed to follow up with his primary care physician and credit counselor. Allergies: Coded Allergies: No Known Allergies (10/30/16) Disposition Summary Disposition Principal Diagnosis: Atrial fibrillation with rapid ventricular response Hypokalemia Elevated troponins secondary to demand ischemia in the setting of tachyarrhythmia Additional Diagnosis: Hypertension Smoking Obesity Discharge Disposition: home or self care Discharge Instructions General Discharge Information Code Status: Full Code Patient's Diet: Heart healthy diet Patient's Activity: As tolerated Follow-Up Instructions/Appts: Please follow up with your primary care physician and credit counselor, Dr. Shelton, after discharge. Medications at Discharge Discharge Medications: Continue taking these medications: Hydrochlorothiazide (Hydrochlorothiazide) 50 MG TABLET 1 Tablet ORAL DAILY Qty = 30 Comments: Last Taken: 01/01/18 Time: 08:00 AM Losartan Potassium (Losartan Potassium) 25 MG TABLET 1.5 Tablet ORAL DAILY Comments: Last Taken: 01/01/18 Time: 8:00 AM Start taking the following new medications: Metoprolol Succ XL (Toprol XL) 25 MG TAB 1 Tablet ORAL DAILY Qty = 30 No Refills Instructions: . Comments: Last Taken: 01/01/18 Time: 8:00 AM Aspirin (Aspirin*) 325 MG TABLET 1 Tablet ORAL DAILY Qty = 30 No Refills Comments: Last Taken: 01/01/18 Time: 1:00 PM Copies To: Lei Enciso MD; Luz Elena Shelton MD, MD Review Statement Documenting Attending: Margi Soto MD Qty = 30 No Refills Instructions: . Comments: Last Taken: 01/01/18 Time: 8:00 AM Aspirin (Aspirin*) 325 MG TABLET 1 Tablet ORAL DAILY Qty = 30 No Refills Comments: Last Taken: 01/01/18 Time: 1:00 PM Copies To: Lei Enciso MD; Luz Elena Shelton MD, MD Review Statement Documenting Attending: Margi Soto MD
--- NOTE | 2018-01-01 13:54 | Cons- Cardiology ---
General Information and HPI Consulting Request Date of Consult: 01/01/18 Requested By: Shay Moseley MD Reason for Consult: Paroxysmal atrial fibrillation Source of Information: patient Exam Limitations: no limitations History of Present Illness: Patient is a 62-year-old male who is known to me from office visit. The patient is admitted via the emergency room with symptoms of warmth, dyspnea, fatigue, and palpitations, noted to be in atrial fibrillation with a rapid ventricular rate. Treated with IV Cardizem in the emergency room and ultimately admitted to [address] [place] [address]. By the time the patient arrived on the telemetry monitored floor he had reverted to sinus rhythm. Has remained in sinus rhythm overnight and has been stable since that time. His troponin was minimally elevated at 0.12. Follow-up troponin is pending. Allergies/Medications Allergies: Coded Allergies: No Known Allergies (10/30/16) Home Med List: Aspirin (Aspirin*) 325 MG TABLET 1 TAB PO DAILY afib Hydrochlorothiazide 50 MG TABLET 1 TAB PO DAILY HTN Losartan Potassium 25 MG TABLET 1.5 TAB PO DAILY htn (Reported) Metoprolol Succ XL (Toprol XL) 25 MG TAB 1 TAB PO DAILY afib/htn . Current Medications: Current Medications Sig/Vitaly Start time Last Medication Dose Route Stop Time Status Admin Acetaminophen 650 MG Q6P PRN 01/01 0145 DCD PO Acetaminophen 1,000 MG Q6P PRN 01/01 0145 DCD IV Aspirin 0 .STK-MED ONE 01/01 1255 DC PO Aspirin 325 MG DAILY 01/01 1230 DCD 01/01 PO 1256 Diltiazem HCl 0 .STK-MED ONE 12/31 2313 DC IV Diltiazem HCl 0 .STK-MED ONE 12/31 2307 DC IV Diltiazem HCl 125 MG Q24H 12/31 2300 DC 12/31 Sodium Chloride 100 ML IV 2321 Diltiazem HCl 20 MG ONCE ONE 12/31 2244 DC 12/31 IV 12/31 Diltiazem HCl 0 .STK-MED ONE 12/31 224 DC .ROUTE Diltiazem HCl 0 .STK-MED ONE 12/312 DC .ROUTE Diltiazem HCl 10 MG ONCE ONE 12/315 DC 12/31 IV 12/31 Enoxaparin Sodium 40 MG DAILY 01/02 900 DCD SC Hydrochlorothiazide 50 MG DAILY 01/01 900 DCD 01/01 PO 08 Losartan Potassium 37.5 MG DAILY 01/01 900 DCD 01/01 PO 08 Metoprolol Tartrate 12.5 MG BID 01/01 145 DCD 01/01 PO 08 Nicotine 14 MG DAILY 01/01 900 DCD TOP Oxycodone/ 1 TAB Q6P PRN 01/01 145 DCD Acetaminophen PO Potassium Chloride 20 MEQ ONCE ONE 01/01 1200 DC 01/01 PO 01/01 1201 1256 Potassium Chloride 0 .STK-MED ONE 12/31 2326 DC PO Potassium Chloride 40 MEQ ONCE ONE 12/31 2314 DC 12/31 PO 12/31 Past History Travel History Traveled to [place] past 21 day No Medical History Blood Transfusion Hx: No Neurological: NONE EENT: NONE Cardiovascular: hypertension Respiratory: NONE Gastrointestinal: NONE Hepatic: NONE Renal: NONE Musculoskeletal: NONE Psychiatric: NONE Endocrine: NONE Blood Disorders: NONE Cancer(s): NONE WILDLIFE TECHNICIAN/Reproductive: NONE Surgical History Surgical History: 1 Psychosocial History Where Do You Live? Home Services at Home: None Smoking Status: Current Everyday Smoker Exam & Diagnostic Data Vital Signs and I&O Vital Signs Date Time Temp Pulse Resp B/P B/P Pulse O2 O2 Flow FiO2 Mean Ox Delivery Rate 01/01 08 66 136/78 01/01 08 66 136/78 01/01 08 Room Air 01/01 0451 98.2 66 22 128/76 93 Room Air 01/01 0143 77 144/84 01/01 0119 98.3 84 20 144/84 94 Room Air 01/01 0034 98.3 78 17 134/75 97 Nasal 1.5L Cannula 12/31 2249 98.7 89 16 121/63 94 Nasal 2.0L Cannula 12/31 2241 127 16 171/106 12/31 2223 134 18 142/72 12/31 2209 94 Room Air 12/31 215 133 16 187/117 95 Room Air 12/31 2117 143/92 01/01 2116 96.6 111 17 98 Room Air Intake & Output 01/01 1600 01/01 0800 01/01 0000 12/31 1600 12/31 0812/31 0000 Intake Total 155 Output Total 575 300 Balance -420 -300 Intake, IV 5 Intake, Oral 150 Number 0 Bowel Movements Output, Urine 575 300 Patient 277 lb 245 lb Weight Weight Bed scale Measurement Method Physical Exam: General Appearance: well developed/nourished, alert, awake, oriented, overweight white male Head: normal HEENT: Normal Neck: supple, JVP normal, carotid upstrokes normal bilaterally, no masses or thyromegaly Respiratory: chest non-tender, clear to auscultation and percussion bilaterally Cardiovascular: regular rate/rhythm, normal S1, S2, 1/6 systolic murmur Abdomen: normal bowel sounds, soft, non-tender Extremities: normal inspection, no edema Vascular: Pulses are 2+ and equal bilaterally Neurologic: Grossly normal/nonfocal Labs/Logan Results: Laboratory Tests 01/01 01/01 12/31 1030 0415 2213 Chemistry Sodium (137 - 145 mmol/L) 137 137 Potassium (3.5 - 5.1 mmol/L) 3.7 3.1 L Chloride (98 - 107 mmol/L) 102 99 Carbon Dioxide (22 - 30 mmol/L) 26 22 Anion Gap (5 - 16) 9 16 BUN (9 - 20 mg/dL) 22 H 26 H Creatinine (0.7 - 1.2 mg/dL) 0.9 1.1 Estimated GFR (>60 ml/min) > 60 > 60 BUN/Creatinine Ratio (7 - 25 %) 24.4 23.6 Glucose (65 - 99 mg/dL) 160 H Calcium (8.4 - 10.2 mg/dL) 10.1 Magnesium (1.6 - 2.3 mg/dL) 2.2 Total Bilirubin (0.2 - 1.3 mg/dL) 0.3 AST (17 - 59 U/L) 63 H ALT (21 - 72 U/L) 120 H Alkaline Phosphatase (< 127 U/L) 64 Troponin I (<0.11 ng/ml) 0.08 0.12 *H < 0.01 Tpt-X-Tmshoygpovy Pept (<125 pg/mL) 87.9 Total Protein (6.3 - 8.2 g/dL) 7.4 Albumin (3.5 - 5.0 g/dL) 4.8 Globulin (1.9 - 4.2 gm/dL) 2.6 Albumin/Globulin Ratio (1.1 - 2.2 %) 1.8 TSH (0.270 - 4.200 uIU/mL) 2.950 Free T4 (0.78 - 2.44 ng/dL) 1.21 Hematology CBC w Diff NO MAN DIFF REQ WBC (4.8 - 10.8 /CUMM) 8.5 RBC (4.70 - 6.10 /CUMM) 4.86 Hgb (14.0 - 18.0 G/DL) 16.0 Hct (42 - 52 %) 46.5 MCV (80.0 - 94.0 FL) 95.7 H MCH (27.0 - 31.0 PG) 33.0 H MCHC (33.0 - 37.0 G/DL) 34.5 RDW (11.5 - 14.5 %) 13.8 Plt Count (130 - 400 /CUMM) 211 MPV (7.4 - 10.4 FL) 8.4 Gran % (42.2 - 75.2 %) 60.3 Lymphocytes % (20.5 - 51.1 %) 31.5 Monocytes % (1.7 - 9.3 %) 6.8 Eosinophils % (0 - 5 %) 1.0 Basophils % (0.0 - 2.0 %) 0.4 Absolute Granulocytes (1.4 - 6.5 /CUMM) 5.1 Absolute Lymphocytes (1.2 - 3.4 /CUMM) 2.7 Absolute Monocytes (0.10 - 0.60 /CUMM) 0.6 Absolute Eosinophils (0.0 - 0.7 /CUMM) 0.1 Absolute Basophils (0.0 - 0.2 /CUMM) 0 12/31 12/31 2137 2132 Chemistry Lny-Q-Pwwafkpdqky Pept Cancelled Coagulation PT (9.4 - 12.5 SEC) 11.5 INR (0.90 - 1.17) 1.05 APTT (25 - 37 SEC) 29 D-Dimer High Sensitivty (0 - 243 ng/ml) < 200 Hematology CBC w Diff NO MAN DIFF REQ WBC (4.8 - 10.8 /CUMM) 9.1 RBC (4.70 - 6.10 /CUMM) 5.12 Hgb (14.0 - 18.0 G/DL) 17.0 Hct (42 - 52 %) 49.2 MCV (80.0 - 94.0 FL) 96.1 H MCH (27.0 - 31.0 PG) 33.3 H MCHC (33.0 - 37.0 G/DL) 34.6 RDW (11.5 - 14.5 %) 13.4 Plt Count (130 - 400 /CUMM) 220 MPV (7.4 - 10.4 FL) 8.7 Gran % (42.2 - 75.2 %) 66.0 Lymphocytes % (20.5 - 51.1 %) 25.7 Monocytes % (1.7 - 9.3 %) 6.8 Eosinophils % (0 - 5 %) 1.2 Basophils % (0.0 - 2.0 %) 0.3 Absolute Granulocytes (1.4 - 6.5 /CUMM) 6.0 Absolute Lymphocytes (1.2 - 3.4 /CUMM) 2.3 Absolute Monocytes (0.10 - 0.60 /CUMM) 0.6 Absolute Eosinophils (0.0 - 0.7 /CUMM) 0.1 Absolute Basophils (0.0 - 0.2 /CUMM) 0 Diagnostic Data CXR Results FINDINGS: No significant abnormality is noted involving the heart, lungs, mediastinum, bony thorax or soft tissues. IMPRESSION: Unremarkable examination. Assessment/Plan Assessment/Plan Assessment: 1. Paroxysmal atrial for ablation-the patient reverted spontaneously to sinus rhythm overnight. Recommend additions as below 2. Hypertension Recommendations: -Continue patient on current medications including metoprolol twice daily -Stable for discharge today. -No need to anticoagulate the present time. -Follow-up with me in 2 weeks, Holter monitor at that time. -Further plans after Holter reviewed Consult Acknowledgment - Thank you for your consult request.
== END 2018-01-01 13:18 | DRG 201 ==
LOC: ERH 21:10 → 1NO 23:32 → ERHI 23:32 → ENRESERV 01-01 00:15 → 1NO 01-01 01:00 → ENPENDDIS 01-01 12:56 → 1NO 01-01 13:18
PROVIDERS: Emergency Medicine; Internal Medicine; Physician Assistant
DX: I48.0 Paroxysmal atrial fibrillation (principal); I10 Essential (primary) hypertension; E87.6 Hypokalemia; F17.210 Nicotine dependence, cigarettes, uncomplicated; E66.9 Obesity, unspecified; Z68.39 Body mass index [BMI] 39.0-39.9, adult; I24.8 Other forms of acute ischemic heart disease
CPT/HCPCS: ERO; 36592; 71045; 82436; 93005; 93010; J0131